=== PATIENT | male | born 1970 | race Caucasian/White ===

== ENCOUNTER 2022-08-02 05:26 | Day surgery (SDC) | payer OTHER ==
[~2022-08-02] VITALS: Ht 180.3 cm; Wt 93.0 kg
[~2022-08-02 05:26] MED LIST: TRASODONE PO; VISTARIL25 MG PO
== END 2022-08-02 16:00 | disposition home or self-care (01) ==
LOC: U 05:26 → CIR.AMB 05:26
PROVIDERS: ATTEND Specialist
DX: D17.23 Benign lipomatous neoplasm of skin and subcutaneous tissue of right leg (principal); F17.210 Nicotine dependence, cigarettes, uncomplicated; Z86.16 Personal history of COVID-19; Z20.822 Contact with and (suspected) exposure to COVID-19